=== PATIENT | male | born 1960 | race Caucasian/White ===

== ENCOUNTER 2021-10-05 13:42 | Inpatient (IN) | payer OTHER ==
[~2021-10-05] VITALS: Ht 188 cm; Wt 117.9 kg
[~2021-10-05 13:42] MED LIST: ACETAMINOPHEN325 M1 OR; ACETAMINOPHEN325 M1 PO; ALDACTONE25 MG PO; AMLODIPINE BESYL5 MG PO; ASPIR 8181 MG PO; ASPIRIN325 PO; ATENOLOL 25 MG25 M1 PO; AUGMENTIN 875875 MG PO; BACTRIM DS TAB1 EACH PO; CARDIZEM CD240 MG PO; CARVEDILOL12.5 MG PO; CARVEDILOL6.25 M1 PO; CATAPRES-TTS 10.1 MG PO; CELEXA 20 MG TA20 M1 PO; CELEXA 20 MG TA20 MG PO; CIPROFLOXACIN500 M3 OR; CITRATE OF MAG296 ML PO; CLONIDINE HCL0.2 M2 PO; CLONIDINE0.1 PO; COLACE 100 MG100 MG PO; COLACE100 MG PO; COREG25 MG PO; COUMADIN7.5 MG PO; DIPHENHYDRAMINE50 MG PO; EFFIENT10 MG PO; ELIQUIS2.5 MG PO; ENTRESTO 24 MG1 EACH PO; FUROSEMIDE 20 M20 MG PO; IBUPROFEN 200200 M1 PO; IBUPROFEN 400400 M1 PO; IBUPROFEN 400400 M2 PO; KLOR-CON 10 ER10 MEQ PO; KLOR-CON 1010 MEQ PO; LASIX 40 MG TAB40 M2 PO; LISINOPRIL20 MG PO; LOPRESSOR 50 MG50 M1 PO; LOPRESSOR25 PO; METOLAZONE 5 MG5 MG PO; NITROGLYCERIN0.4 MG SL; NITROSTAT0.4 M1 SUBLING; PACERONE 200 M200 M1 PO; PAMELOR25 MG PO; PLAVIX 75 MG TA75 MG PO; PROAIR HFA8.5 GM INH; PROTONIX40 M2 PO; PROZAC10 MG; SIMVASTATIN40 MG PO; SPIRONOLACTONE25 M1 PO; TENORMIN25 MG PO; TRAMADOL 50 MG50 MG PO; TYLENOL325 MG PO; XARELTO20 MG PO
[2021-10-05 13:48] VITALS: BP 98/78
--- NOTE | 2021-10-05 14:57 | EKG ---
[address] [place] [address] ELECTROCARDIOGRAM REPORT Name: ELIZABETH SAXENA Room #: 208-P ADM IN M.R.#: [id number] Admission: 10/05/21 Attend Phys: Nadya Bennett MD Discharge: Date of : 62 Report #: [id number] [facility] Test Date: 2021-10-05 Test Time: 14:03:33 Pat Name: ELIZABETH SAXENA Department: Room: 208 P Gender: M [employer] Machine Operator: NIMESH : 1960 Requested By: Sarah Peter Order Number: [id number] MD: Tyrel Ellington Measurements Intervals [place] Rate: 77 P: KS: QRS: 12 QRSD: 88 T: 165 QT: 452 QTc: 512 Interpretive Statements Atrial fibrillation Ventricular premature complex Low voltage, precordial leads RSR' in V1 or V2, probably normal variant Abnormal T, consider ischemia, lateral leads Compared to ECG 05/03/2021 14:46:23 Low QRS voltage now present RSR' in V1 or V2 now present T-wave abnormality now present Possible ischemia now present Electronically Signed On 10-05-2021 14:56:53 [employer]PERATIONS CONTRO[employer] by Tyrel Ellington [email or web address] <ELECTRONICALLY SIGNED> By: Tyrel Ellington MD, FACC 10/05/21 1456 1403 140 Tyrel Ellington MD, FACC /EPI
--- NOTE | 2021-10-05 15:38 | 2DMMODE ---
[facility] [place] [address] 2 D/M-MODE ECHOCARDIOGRAM Name: ELIZABETH SAXENA Room #: 208-P ADM IN ..#: [id number] Admission: 10/05/21 Attend Phys: Nadya Bennett MD Discharge: Date of : 62 Report #: [id number] THIS REPORT FOR: cc: FAM - Family physician unknown FAM - Family physician unknown Ben Grier MD ~ APPROVED REPORT Study performed: 10/05/2021 14:38:24 EXAM: Comprehensive 2D, Doppler, and color-flow Echocardiogram Patient Location: Bedside Status: routine BSA: 2.43 HR: 81 bpm BP: 98/78 mmHg Other Information Study Quality: Adequate/unable to finish exam due to severe chest pains Indications Chest Pain Hx: CABG, PCI, cardiomyopathy, cardiac arrest, COPD, Afib. 2D Dimensions IVSd: 10.10 (7-11mm) LVOT Diam: 24.10 (18-24mm) LVDd: 40.02 mm PWd: 9.51 (7-11mm) Ascending Ao: 34.01 (22-36mm) LVDs: 30.21 (25-40mm) Left Atrium: 42.64 (27-40mm) Pulmonary Valve PV Peak Tan.: 1.02 m/s PV Peak Gr.: 4.13 mmHg Tricuspid Valve TR Peak Tan.: 1.95 m/s TR Peak Gr.: 15.18 mmHg Left Ventricle The left ventricle is normal size. There is normal left ventricular wall thickness. Left ventricular systolic function is normal. LVEF is >55%. [facility] [address] [place] [address] 2 D/M-MODE ECHOCARDIOGRAM Name: ELIZAEBTH SAXENA Room #: 208-P [facility] IN ..#: [id number] Admission: 10/05/21 Attend Phys: Nadya Bennett MD Discharge: Date of : 62 Report #: [id number] Biatrial enlargement. Aortic Valve The aortic valve is normal in structure; mildly calcified. No aortic regurgitation is present. There is no aortic valvular stenosis. Mitral Valve The mitral valve is normal in structure. Trace mitral regurgitation. Tricuspid Valve The tricuspid valve is normal in structure. Trace tricuspid regurgitation. Estimated PAP is 15mmHg plus the RAP. Pulmonic Valve The pulmonary valve is normal in structure. There is no pulmonic valvular regurgitation. Great Vessels The aortic root is normal in size. The ascending aorta is normal in size. Pericardium There is no pericardial effusion. <Conclusion> The left ventricle is normal size. Left ventricular systolic function is normal. LVEF is >55%. Biatrial enlargement. The aortic valve is normal in structure; mildly calcified. The mitral valve is normal in structure. Trace mitral regurgitation. The tricuspid valve is normal in structure. Trace tricuspid regurgitation. Estimated PAP is 15mmHg plus the RAP. The aortic root is normal in size. There is no pericardial effusion. <ELECTRONICALLY SIGNED> By: Ben Grier MD 10/05/21 1537 [id number] 153 Ben Grier MD /INF
[2021-10-05 16:12] VITALS: BP 122/96
[2021-10-05 16:43] LABS: CALCIUM 8.5 mg/dL (8.5-10.1); CREATININE 1.5 mg/dL (0.7-1.3); POTASSIUM 3.1 mmol/L (3.5-5.1)
--- NOTE | 2021-10-05 18:23 | NUR ---
PATIENT ARRIVED AT APPX 1345 [facility]IA [facility]. VS OBTAINED, TELE MONITOR PLACED ON. AT APPX 1500 PATIENT WAS IN THE MIDDLE OF GETTING AN ECHO WHEN HE STARTED TO EXPERIENCE CHEST PAIN. NITRO WAS GIVEN X 3 WITH LITTLE RELIEF. PATIENT BECAME IRRITABLE WHEN THE CARDIO NURSE EXPLAINED THAT WE WERE NOT GOING TO ORDER ANY PAIN MEDICATIONS AND THAT HE COULD HAVE TYLENOL. PATIENT TOOK TYLENOL AND RECOVERED FROM CHEST PAIN EVEN THOUGH HE STATES HIS PAIN REMAINS AT AN 8 OUT OF 10. PATIENT ATE TWO DINNER TRAYS AND IS RESTING WITH LIGHTS OFF AT THIS TIME.
[2021-10-05 19:27] VITALS: BP 114/70
[2021-10-06 03:21] LABS: ABSOLUTE NEUTROPHILS 6.7 thou/uL (1.4-8.2); BASOPHILS 1.1 % (0.0-2.0); EOSINOPHILS 2.5 % (0.0-3.0); HEMATOCRIT 37.5 % (42.0-52.0); HEMOGLOBIN 12.6 gm/dL (14.0-18.0); LYMPHOCYTES 18.5 % (24.0-44.0); MCH 28.8 pg (26.0-34.0); MCHC 33.6 g/dL (28.0-37.0); MCV 85.9 fL (80.0-100.0); PLATELET COUNT 283 thou/uL (150-400); POLYS 67.9 % (36.0-66.0); RBC 4.37 mil/uL (4.50-6.00); RDW 14.8 % (10.5-14.5); WBC 9.8 thou/uL (4.0-11.0)
[2021-10-06 03:36] LABS: CALCIUM 8.7 mg/dL (8.5-10.1); CREATININE 1.4 mg/dL (0.7-1.3); MAGNESIUM 1.8 mg/dL (1.8-2.4); POTASSIUM 3.6 mmol/L (3.5-5.1)
[2021-10-06 04:16] LABS: AMP/METHAMP POSITIVE (Negative); BARBITURATES Negative (Negative); BENZODIAZEPINES POSITIVE (Negative); COCAINE Negative (Negative); METHADONE Negative (Negative); OPIATES POSITIVE (Negative); PCP Negative (Negative)
[2021-10-06 05:19] VITALS: BP 111/68
[2021-10-06 07:45] VITALS: BP 136/96
--- NOTE | 2021-10-06 11:08 | NUR ---
PT ADMITTED RELATED TO CHEST PAIN. CM REVIEWED CHART AND SPOKE WITH CARE TEAM. CM MET WITH PT THIS DAY. CM ROLE INTRODUCED. PT REPORTS HE LIVES IN A HOUSE WITH HIS . REPORTS HE IS INDEPENDENT WITH HIS ADLS AND MOBILITY AND NO CONCERNS GOING HOME. PLAN FOR PT IS TO DISCHARGE HOME TODAY WITH NO NEEDS. PT DID REPORT HE WILL NEED A RIDE HOME. TRANSPORTATION ARRANGED FOR PT USING [employer] ([email or web address]). NO FURTHER INTERVENTIONS BY CM AT THIS TIME.
[2021-10-06 11:42] VITALS: BP 130/85
[2021-10-06 11:54] VITALS: BP 136/96
[2021-10-06 12:16] VITALS: BP 136/96
--- NOTE | 2021-10-06 16:16 | NUR ---
PT TRANSPORTED TO HOSPITAL [facility]IA [facility]. CLEARED BY CARDIOLOGY. THIS SM ARRANGED TRANSPORT THROUGH [facility] AND WAS TO ARRIVE IN 3 HOUR WINDOW BY 240. NO ONE HAS ARRIVED TO TRANSPORT PT HOME AT THIS TIME. [id number] THIS [facility] AND WAS INSTRUCTED THEY ARE TRYING TO FIND A HUMANITIES DIVISION CHAIR. THEY WILL CALL THE UNIT, PHONE NUMBER GIVEN, AND LET THE UNIT KNOW WHEN A NEW TIME IS ARRANGED.
--- NOTE | 2021-10-06 17:30 | NUR ---
PATIENT DISCHARGED HOME, NO QUESTIONS OR CONERNS AT TIME OF DISCHARGE TEACHING. TAKEN BY WHEELCHAIR TO ER FOR CAB RIDE. IV AND TELE REMOVED.
== END 2021-10-06 17:36 | disposition home or self-care (01) | DRG 313 ==
LOC: 2N 13:42
PROVIDERS: Hospitalist; Nurse Practitioner; ADMIT Internal Medicine; ATTEND Internal Medicine
DX: R07.9 Chest pain, unspecified (principal); I48.21 Permanent atrial fibrillation; N17.9 Acute kidney failure, unspecified; F32.9 Major depressive disorder, single episode, unspecified; F41.9 Anxiety disorder, unspecified; G89.4 Chronic pain syndrome; M54.9 Dorsalgia, unspecified; I48.0 Paroxysmal atrial fibrillation; J44.9 Chronic obstructive pulmonary disease, unspecified; E87.6 Hypokalemia; E83.42 Hypomagnesemia; I12.9 Hypertensive chronic kidney disease with stage 1 through stage 4 chronic kidney disease, or unspecified chronic kidney disease; I25.5 Ischemic cardiomyopathy; N18.9 Chronic kidney disease, unspecified; F12.10 Cannabis abuse, uncomplicated; E66.9 Obesity, unspecified; I25.10 Atherosclerotic heart disease of native coronary artery without angina pectoris; Z91.14 Patient's other noncompliance with medication regimen; Z88.6 Allergy status to analgesic agent; Z88.8 Allergy status to other drugs, medicaments and biological substances; Z95.5 Presence of coronary angioplasty implant and graft; Z86.73 Personal history of transient ischemic attack (TIA), and cerebral infarction without residual deficits; Z95.1 Presence of aortocoronary bypass graft; Z68.33 Body mass index [BMI] 33.0-33.9, adult; Z65.8 Other specified problems related to psychosocial circumstances
CPT/HCPCS: 10797